=== PATIENT | female | born 2000 | race Hispanic/Latino ===

== ENCOUNTER 2022-08-05 14:44 | Day surgery (SDC) | payer OTHER, SELFPAY ==
[2022-08-05 16:24] LABS: Fetal Membranes Rupture No Membranes Rupture (No Rupture)
[2022-08-05 17:08] VITALS: BMI 36.6
[2022-08-07] LABS: Chlamydia by PCR Not Detected (NotDetected); GC by PCR Not Detected (NotDetected)
== END 2022-08-05 17:50 | disposition home or self-care (01) ==
LOC: CSHLD/OP 14:44
PROVIDERS: ATTEND Family Medicine
DX: O47.1 False labor at or after 37 completed weeks of gestation (principal); Z3A.39 39 weeks gestation of pregnancy
CPT/HCPCS: 84112; 87480; 87491; 87510; 87591; 87660; 87661; 99285

== ENCOUNTER 2022-08-08 05:30 | Inpatient (IN) | payer MEDICAID, OTHER, SELFPAY ==
[2022-08-09] MEDS ORDERED: Bupivacaine 0.25% HCL 30 ML VIAL ONE (08:00)
[2022-08-09 19:07] VITALS: BMI 36.6
[2022-08-09] MEDS ORDERED: Promethazine HCl 25 MG/ML VIAL IM PRN (19:13)
[2022-08-09] MEDS ORDERED: hydrALAZINE 20 MG/ML VIAL SLOW IVP PRN (19:13)
[2022-08-09] MEDS ORDERED: Acetaminophen 500 MG TAB PO PRN (19:13)
[2022-08-09] MEDS ORDERED: HYDROcodone/Acetaminophen 5/325 mg Tablet PO PRN (19:13)
[2022-08-09] MEDS ORDERED: Methylergonovine 0.2 MG/ML VIAL IM PRN (19:13)
[2022-08-09] MEDS ORDERED: Butorphanol Tartrate 1 MG/ML VIAL SLOW IVP PRN (19:13)
[2022-08-09] MEDS ORDERED: Lidocaine 1% (PF) 30 ML VIAL SC PRN (19:13)
[2022-08-09] MEDS ORDERED: Carboprost 250 MCG/ML AMP IM PRN (19:13)
[2022-08-09] MEDS ORDERED: Misoprostol 200 MCG TAB PR PRN (19:13)
[2022-08-09] MEDS ORDERED: Ibuprofen 800 MG TAB PO PRN (19:13)
[2022-08-09] MEDS ORDERED: Diphenoxylate HCl/Atropine Tablet PO PRN (19:13)
[2022-08-09] MEDS ORDERED: Ondansetron PF 4 MG/2 ML Vial IVP PRN (19:13)
[2022-08-09] MEDS ORDERED: NS w/ Oxytocin 30 units 500 ML IV SCH ×2 (19:15)
[2022-08-09] MEDS ORDERED: Azithromycin 1,000 MG in Sodium Chloride 0.9% 500 ML IVPB SCH (19:15)
[2022-08-09] MEDS ORDERED: Azithromycin 1,000 MG, Admixture Fee 1 EACH in Sodium Chloride 0.9% 500 ML IVPB SCH (19:45)
[2022-08-09] MEDS: Misoprostol 100 MCG TAB VAG SCH ×2 (19:53→23:16)
[2022-08-09 20:37] LABS: Hemoglobin 10.4 g/dL (12.0-15.5); Mean Corpuscular HGB CONC 34.2 g/dL (32.0-36.0); Mean Corpuscular Hemoglobin 26.9 pg (27.0-33.0); Mean Corpuscular Volume 78.8 fl (81.6-98.3); Mean Platelet Volume 11.8 fl (7.4-10.4); Platelet Count 260 10x3/uL (150-450); RBC Distribution Width 15.5 % (11.5-14.5); Red Blood Cell (RBC) Count 3.86 10x6/uL (3.90-5.03); White Blood Cell (WBC) Count 8.8 10x3/uL (3.5-10.5)
[2022-08-09 20:52] LABS: SARS-CoV-2 NAA Rapid Test Not Detected (NotDetected)
[2022-08-09 21:13] LABS: Syphilis Antibody Nonreactive (Nonreactive); Syphilis Antibody Index 0.04 S/CO (<1.00 Non-Reactive)
[2022-08-09 21:14] LABS: HBSAg Index 0.15 S/CO (0-0.99); Hep B Surf Ag Non-Reactive S/CO (NonReactive)
[2022-08-09] MEDS: Lactated Ringer's 1,000 ML IV SCH (23:16)
[2022-08-10] MEDS: Misoprostol 100 MCG TAB VAG SCH ×2 (02:25→23:11)
[2022-08-10] MEDS ORDERED: Fentanyl 2 mcg/Bup 0.1% Cadd 100 ML ONE (06:38)
[2022-08-10] MEDS ORDERED: Lactated Ringer's 500 ML IV PRN (08:47)
[2022-08-10] MEDS ORDERED: Moisturizing Cream (Eucerin) 113 GM JAR TOP PRN (08:47)
[2022-08-10] MEDS ORDERED: diphenhydrAMINE 50 MG/ML VIAL IVP PRN (08:47)
[2022-08-10] MEDS ORDERED: Ondansetron PF 4 MG/2 ML Vial IVP PRN ×2 (08:47→17:30)
[2022-08-10] MEDS ORDERED: Promethazine HCl 25 MG/ML VIAL IM PRN ×2 (08:47→17:30)
[2022-08-10] MEDS ORDERED: Acetaminophen 325 MG TAB PO PRN (08:47)
[2022-08-10] MEDS ORDERED: Naloxone HCl 0.4 mg/ml Vial IVP PRN ×2 (08:47)
[2022-08-10] MEDS ORDERED: ePHEDrine Sulfate 50 MG/10 ML VIAL SLOW IVP PRN (08:47)
[2022-08-10] MEDS ORDERED: Fentanyl 2 mcg/Bupivacaine 0.1% Cassette 100 ML EPIDURAL SCH (09:00)
[2022-08-10] MEDS ORDERED: Communication Order-Pharmacy FS SCH (09:00)
[2022-08-10 15:42] LABS: RapidComm Collect By CBN
[2022-08-10 15:43] LABS: RapidComm Collect By CBN; pH (Cord, venous) 7.252 (7.250-7.350)
[2022-08-10] MEDS ORDERED: HYDROcodone/Acetaminophen 5/325 mg Tablet PO PRN (17:30)
[2022-08-10] MEDS ORDERED: hydrALAZINE 20 MG/ML VIAL SLOW IVP PRN (17:30)
[2022-08-10] MEDS ORDERED: Preparation H Ointment 28 GM TUBE PR PRN (17:30)
[2022-08-10] MEDS ORDERED: diphenhydrAMINE 25 MG CAP PO PRN (17:30)
[2022-08-10] MEDS ORDERED: Boostrix 0.5 ML (Tdap) VIAL (>/=7 yrs of age) IM ONE (17:30)
[2022-08-10] MEDS ORDERED: Benzocaine-Menthol 82.5 ML CAN TOP PRN (17:30)
[2022-08-10] MEDS ORDERED: Bisacodyl 10 MG SUPP PR PRN (17:30)
[2022-08-10] MEDS ORDERED: Milk Of Magnesia 30 ML UDCUP PO PRN (17:30)
[2022-08-10] MEDS ORDERED: Ferrous Sulfate 325 MG TAB PO SCH (18:00)
[2022-08-10] MEDS: Docusate 100 MG CAP PO SCH (19:53)
[2022-08-10] MEDS: HYDROcodone/Acetaminophen 5/325 mg Tablet PO PRN (19:53)
[2022-08-10] MEDS: Ibuprofen 800 MG TAB PO SCH (21:24)
[2022-08-11] MEDS: Ibuprofen 800 MG TAB PO SCH ×3 (04:41→21:08)
[2022-08-11] MEDS: Ferrous Sulfate 325 MG TAB PO SCH ×2 (07:58→16:46)
[2022-08-11] MEDS: Docusate 100 MG CAP PO SCH ×2 (08:14→21:08)
[2022-08-11] MEDS: HYDROcodone/Acetaminophen 5/325 mg Tablet PO PRN (08:14)
[2022-08-11] MEDS: Prenatal Vitamin 1 TAB PO SCH (08:14)
[2022-08-11] MEDS: Lactated Ringer's 1,000 ML IV SCH (09:07)
[2022-08-12] MEDS: Ibuprofen 800 MG TAB PO SCH ×2 (05:10→14:19)
[2022-08-12] MEDS: Ferrous Sulfate 325 MG TAB PO SCH (07:27)
[2022-08-12 08:01] VITALS: BP 103/66; TEMP 98.3
[2022-08-12] MEDS: Prenatal Vitamin 1 TAB PO SCH (08:13)
[2022-08-12] MEDS: Docusate 100 MG CAP PO SCH (08:14)
== END 2022-08-12 18:00 | disposition home or self-care (01) | DRG 807 ==
LOC: CSHLD 08-09 18:20 → CSHPP 08-10 17:45
PROVIDERS: ADMIT Family Medicine; ATTEND Family Medicine
PROC: 10E0XZZ Delivery of Products of Conception, External Approach (ICD-10-PCS; principal; 2022-08-10)
PROC: 10907ZC Drainage of Amniotic Fluid, Therapeutic from Products of Conception, Via Natural or Artificial Opening (ICD-10-PCS; 2022-08-10)
PROC: 3E0P7VZ Introduction of Hormone into Female Reproductive, Via Natural or Artificial Opening (ICD-10-PCS; 2022-08-10)
PROC: 10H07YZ Insertion of Other Device into Products of Conception, Via Natural or Artificial Opening (ICD-10-PCS; 2022-08-10)
PROC: 0W8NXZZ Division of Female Perineum, External Approach (ICD-10-PCS; 2022-08-10)
DX: O76 Abnormality in fetal heart rate and rhythm complicating labor and delivery (principal); Z37.0 Single live birth; Z3A.40 40 weeks gestation of pregnancy; Z20.822 Contact with and (suspected) exposure to COVID-19
CPT/HCPCS: 36415; 51702; 82805; 85027; 86780; 86850; 86900; 86901; 87340; J0456; J0595; J7030; J7120; S0020; U0002